=== PATIENT | female | born 1990 | race Caucasian/White ===

== ENCOUNTER 2018-08-28 13:17 | Emergency (ER) | payer MEDICAID, SELFPAY ==
[2018-08-28 13:19] VITALS: BP 140/73; PULSE 93; RESP 18; TEMP 36.7; O2SAT 99; BMI 48.4
--- NOTE | 2018-08-28 13:32 | ED.VISSUMM ---
- ER Visit Summary Date of Service: 08/28/18 Chief Complaint: Right lateral foot pain History of Present Illness: The patient is a 27 F past medical history. Reportedly recently had a stress fracture of her right foot.Patient stepped off a curb today landed awkwardly on her right foot and is now having pain on her right lateral foot. Did not fall. Denies other injuries. Never had surgery to her right foot. Physical Examination: Well-appearing young female. Vital signs are stable afebrile. HEENT exam unremarkable. Lungs clear to auscultation bilaterally. Heart regular rate and rhythm no murmur. Abdomen soft nontender. Normal bowel sounds. Patient moving all 4 extremities. Neurovascular intact. Her right hip, right knee and right ankle are nontender and nonswollen with normal range of motion. Her right foot is tender on the midportion of the right lateral malleolus. There is no significant swelling. The right foot is neurovascularly intact with normal range of motion. Touch sensation. Palpable DP pulse. Normal cap refill. No gross bony deformity. Test Results: Right foot x-ray 3 views show nondisplaced, transverse fracture of the base of the fifth or small toe metatarsal. Read both by myself and the radiologist. Emergency Department Course and Treatment: Patient did not want anything at this time for pain Treatment Plan: Walking boot. Disposition: Discharge Impression: Acute right foot fifth or small metatarsal nondisplaced transverse fracture This note was generated with [employer] dictation software. It may contain incorrect words, spelling, and punctuation that were not noted in review of the chart prior to signing ED Disposition - Plan for ED Patient: Referrals: Vanessa Montes De Oca MD [Primary Care Provider] -
--- NOTE | 2018-08-28 13:35 | RAD_ITS ---
STUDY: X-RAY - RIGHT FOOT CLINICAL: Female, 27 years old. Fifth metatarsal pain. TECHNIQUE: 3 view(s) of the foot. COMPARISON: None. FINDINGS: Normal talus, calcaneus, and tarsal bones. Normal visualized subtalar, talonavicular, calcaneocuboid, tarsal and tarsometatarsal articulations. Nondisplaced transverse fracture at the base of the fifth metatarsal. Overlying soft tissue swelling. No prior study is available for comparison. Normal metatarsophalangeal joint of the great toe. Normal tibial and fibular sesamoid bones. Normal interphalangeal joint of the great toe. Normal phalanges of the great toe. Normal second through fifth metatarsophalangeal joints. Normal interphalangeal joints and phalanges of the lesser toes. Soft tissue swelling. RAD/Foot min 3 Views IMPRESSION: Nondisplaced transverse fracture at the base of the fifth metatarsal. No comparison available. Soft tissue swelling. Electronically Signed: Av Carty MD at 13:56 EST , Service support ,
--- NOTE | 2018-08-28 13:36 | ED.DCSUM_ITS ---
- ER Visit Summary Date of Service: 08/28/18 Chief Complaint: Right lateral foot pain History of Present Illness: The patient is a 27 F past medical history. Reportedly recently had a stress fracture of her right foot.Patient stepped off a curb today landed awkwardly on her right foot and is now having pain on her right lateral foot. Did not fall. Denies other injuries. Never had surgery to her right foot. Physical Examination: Well-appearing young female. Vital signs are stable afebrile. HEENT exam unremarkable. Lungs clear to auscultation bilaterally. Heart regular rate and rhythm no murmur. Abdomen soft nontender. Normal bowel sounds. Patient moving all 4 extremities. Neurovascular intact. Her right hip, right knee and right ankle are nontender and nonswollen with normal range of motion. Her right foot is tender on the midportion of the right lateral mall eolus. There is no significant swelling. The right foot is neurovascularly intact with normal range of motion. Touch sensation. Palpable DP pulse. Normal cap refill. No gross bony deformity. Test Results: Right foot x-ray 3 views show nondisplaced, transverse fracture of the base of the fifth or small toe metatarsal. Read both by myself and the radiologist. Emergency Department Course and Treatment: Patient did not want anything at this time for pain Treatment Plan: Walking boot. Disposition: Discharge Impression: Acute right foot fifth or small metatarsal nondisplaced transverse fracture This note was generated with [employer] dictation software. It may contain incorrect words, spelling, and punctuation that were not noted in review of the chart prior to signing ED Disposition - Plan for ED Patient: Referrals: Vanessa Montes De Oca MD [Primary Care Provider] -
--- NOTE | 2018-08-28 14:51 | DCINST.ED_ITS ---
ED Disposition - Plan for ED Patient: Disposition: Home or Assisted Living Instructions: ED Fx Foot Additional Instructions: Ice elevate right foot. Tylenol and Motrin for pain. 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
== END 2018-08-28 15:14 | disposition home or self-care (01) ==
PROVIDERS: Emergency Provider Emergency Medicine; Family Provider Internal Medicine; PCP Internal Medicine
DX: S92.354A Nondisplaced fracture of fifth metatarsal bone, right foot, initial encounter for closed fracture (principal); W01.0XXA Fall on same level from slipping, tripping and stumbling without subsequent striking against object, initial encounter; Y93.9 Activity, unspecified; Y92.480 Sidewalk as the place of occurrence of the external cause; Y99.9 Unspecified external cause status; Z86.14 Personal history of Methicillin resistant Staphylococcus aureus infection
CPT/HCPCS: 73630; 99282

== ENCOUNTER → 2019-03-06 18:07 | Outpatient (CLI) | payer MEDICAID, SELFPAY ==
[2019-03-06 19:59] LABS: Chlamydia Trachomatis by PCR Negative (Negative); Neisserai gonorrhoeae by PCR Negative (Negative); Probe Check PASS; Sample Adequacy Control PASS; Specimen Processing Control PASS
[2019-03-12 12:36] LABS: HPV Reflexed? NOT INDICATED
== END ==
PROVIDERS: Family Provider Internal Medicine; PCP Internal Medicine; Referring Provider Obstetrics & Gynecology; Visit Provider Obstetrics & Gynecology
DX: Z12.4 Encounter for screening for malignant neoplasm of cervix (principal); Z11.3 Encounter for screening for infections with a predominantly sexual mode of transmission
CPT/HCPCS: 87491; 87591; 87624; 88175; G0145